=== PATIENT | female | born 1930 | race Caucasian/White ===

== ENCOUNTER 2017-03-22 10:03 | Emergency (ER) | payer MEDICARE, MEDICAID ==
[~2017-03-22] VITALS: Ht 154.9 cm; Wt 63.5 kg
[~2017-03-22 10:03] MED LIST: AMITRIPTYLINE10 MG PO; B-121000 MCG; B-121000 MCG SC; B121000 MCG/1 IM; BENICAR40 MG PO; BISACODYL5 MG PO; CIPRO250 MG PO; COLCRYS0.6 MG PO; DOXYCYCLINE100 M3 PO; ELAVIL10 MG PO; GABAPENTIN300 MG PO; GLIMEPIRIDE2 MG PO; JANUMET 1000 MG1 TA1; JANUMET 1000 MG1 TA1 PO; METFORMIN; METFORMIN1000 MG PO; MOM30 M1; NEUTRA PHOS K PO; NORVASC5 MG PO; NOVOLOG100 U/ML; PRAVACHOL40 MG PO; PRED FORTE 5 ML5 ML OP; PREDNISOLONE AC10 M1; PROTONIX40 MG PO; SIMVASTATIN40 MG PO; TYLENOL325 M1; VASOTEC2.5 MG PO; VICODIN 5/500 505 MG PO; [UNRECOGNIZED DRUG - OTHER]
[2017-03-22] MEDS ORDERED: BRILINTA90 M1 PO (10:08)
[2017-03-22] MEDS ORDERED: METOPROLOL25 MG PO (10:09)
[2017-03-22] MEDS ORDERED: IMDUR SA30 MG PO (10:10)
[2017-03-22] MEDS ORDERED: LISINOPRIL5 MG PO (10:10)
[2017-03-22] MEDS ORDERED: COLESTIPOL HYDRO1 GM PO (10:11)
== END 2017-03-22 10:49 | disposition home or self-care (01) ==
LOC: ED 10:03
DX: S51.812A Laceration without foreign body of left forearm, initial encounter (principal); R03.0 Elevated blood-pressure reading, without diagnosis of hypertension; Z79.899 Other long term (current) drug therapy; X58.XXXA Exposure to other specified factors, initial encounter; Y93.89 Activity, other specified; Y92.9 Unspecified place or not applicable; Y99.9 Unspecified external cause status

== ENCOUNTER → 2017-07-03 | Outpatient (CLI) | payer MEDICARE, MEDICAID ==
[~2017-07-03] MED LIST changes: +BRILINTA90 M1 PO; +COLESTIPOL HYDRO1 GM PO; +IMDUR SA30 MG PO; +LISINOPRIL5 MG PO; +METOPROLOL25 MG PO
[2017-07-03 14:48] LABS: BASO % 0.5 % (0.0-1.0); EOS # 0.2 10*3/uL (0.0-0.4); EOS % 2.9 % (1.0-4.0); HEMATOCRIT 30.7 % (37.0-47.0); HEMOGLOBIN 9.7 g/dl (12.0-16.0); LYMPH # 2.8 10*3/uL (1.3-4.4); LYMPH % 35.3 % (27.0-41.0); MEAN CELL VOLUME 101.3 fl (81.0-99.0); MEAN CORPUSCULAR HGB CONC 31.6 g/dl (33.0-37.0); MEAN PLATELET VOLUME 10.4 fl (9.6-12.3); MONO # 0.7 10*3/uL (0.1-1.0); MONO % 8.3 % (3.0-9.0); NEUT # 4.2 10*3/uL (2.3-7.9); NEUT % 52.7 % (47.0-73.0); PLATELET COUNT AUTOMATED 208 10*3/uL (130-400); RED BLOOD COUNT 3.03 10*6/uL (4.10-5.10); RED CELL DISTRI WIDTH 12.8 % (0-14.5)
[2017-07-03 19:11] LABS: ALBUMIN 3.4 gm/dl (3.1-4.5); BILIRUBIN, TOTAL 0.3 mg/dl (0.2-1.0); POTASSIUM 5.1 mmol/L (3.5-5.1); TOTAL PROTEIN 6.7 gm/dL (6.4-8.2)
[2017-07-03 19:20] LABS: THYROID STIM HORMONE (HS) 2.82 uIU/ml (0.358-4.75)
== END | disposition home or self-care (01) ==
LOC: LAB 13:49
PROVIDERS: Internal Medicine
DX: I25.84 Coronary atherosclerosis due to calcified coronary lesion (principal); E11.9 Type 2 diabetes mellitus without complications

== ENCOUNTER → 2018-02-18 | Outpatient (CLI) | payer MEDICARE, MEDICAID ==
[2018-02-18 11:36] LABS: BASO % 0.5 % (0.0-1.0); EOS # 0.2 10*3/uL (0.0-0.4); EOS % 2.6 % (1.0-4.0); HEMATOCRIT 29.8 % (37.0-47.0); HEMOGLOBIN 9.4 g/dl (12.0-16.0); LYMPH # 2.5 10*3/uL (1.3-4.4); LYMPH % 32.9 % (27.0-41.0); MEAN CELL VOLUME 102.1 fl (81.0-99.0); MEAN CORPUSCULAR HGB 32.2 pg (27.0-31.0); MEAN CORPUSCULAR HGB CONC 31.5 g/dl (33.0-37.0); MEAN PLATELET VOLUME 10.2 fl (9.6-12.3); MONO # 0.6 10*3/uL (0.1-1.0); MONO % 8.1 % (3.0-9.0); NEUT # 4.1 10*3/uL (2.3-7.9); NEUT % 55.4 % (47.0-73.0); PLATELET COUNT AUTOMATED 195 10*3/uL (130-400); RED BLOOD COUNT 2.92 10*6/uL (4.10-5.10); RED CELL DISTRI WIDTH 12.5 % (0-14.5); WHITE BLOOD COUNT 7.4 10*3/uL (4.8-10.8)
[2018-02-18 11:54] LABS: ALBUMIN 3.3 gm/dl (3.1-4.5); CREATININE 1.15 mg/dL (0.55-1.02); POTASSIUM 4.6 mmol/L (3.5-5.1); TOTAL PROTEIN 6.4 gm/dL (6.4-8.2)
[2018-02-18 12:03] LABS: THYROID STIM HORMONE (HS) 3.21 uIU/ml (0.358-4.75)
[2018-02-18 12:22] LABS: VITAMIN D, 25-HYDROXY 21.6 ng/mL (30-100)
== END | disposition home or self-care (01) ==
LOC: LAB 10:45
PROVIDERS: Internal Medicine
DX: I25.84 Coronary atherosclerosis due to calcified coronary lesion (principal); E53.8 Deficiency of other specified B group vitamins; E11.9 Type 2 diabetes mellitus without complications; E55.9 Vitamin D deficiency, unspecified

== ENCOUNTER 2018-11-04 20:35 | Inpatient (IN) | payer MEDICARE ==
[~2018-11-04] VITALS: Ht 152.4 cm; Wt 69.0 kg
--- NOTE | ~2018-11-04 | EKG ---
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
--- NOTE | ~2018-11-04 | CON ---
[place], [place] REPORT OF CONSULTATION [id number] UNIT #: [id number] ROOM: 407 DOCTOR: CHEYENNE MCNAMARA MD BIRTHDATE: [birth year] DOS: 11/05/2018 HISTORY OF PRESENT ILLNESS: An 87-year-old patient who presented with chief complaint of presumptive abdominal pain, diarrhea, nausea, vomiting and undergoing investigation. Panel of blood work was done. Lactic acid was 2.1. Her INR was 0.9. CBC differential, white blood cell 14, H and H of 11 and 36, microcytic indices. Troponin normal. Comprehensive metabolic panel: BUN and creatinine 42 and 1.6, GFR 36, potassium initially 6.1, which has been corrected to 4.9, phosphorus and magnesium was reviewed. Her INR was 1.0. CBC differential, H and H of 9 and 30, macrocytic indices was noticed. CT scan of the abdomen and pelvis was done. Colitis extending from the splenic flexure to proximal sigmoid colon, sigmoid diverticulosis all was noticed. Chest x-ray reviewed, no acute pathology identified. PAST MEDICAL HISTORY: Diabetes mellitus, coronary artery disease, hyperkalemia, systemic hypertension, hyperlipidemia. PAST SURGICAL HISTORY: Carotid endarterectomy, coronary artery disease. SOCIAL HISTORY: Nonsmoker, nonalcohol consumer. FAMILY HISTORY: Noncontributory. ALLERGIES: No known medications. MEDICATIONS: List reviewed. REVIEW OF SYSTEMS: HEENT: Denies double vision, blurred vision. RESPIRATORY: Denies acute shortness of breath. CARDIOVASCULAR: Denies acute chest pain. DIGESTIVE SYSTEM: Nausea, vomiting, diarrhea, abdominal pain. PHYSICAL EXAMINATION: VITAL SIGNS: To be stable. HEENT: Head normocephalic, nontraumatic. Mouth and buccal mucosa benign. NECK: Supple, no thyromegaly, no cervical lymphadenopathy. CHEST: Symmetric anatomy, equal expansion. No wheeze, no rhonchi. HEART: Normal sinus rhythm, no gallop, no murmur. ABDOMEN: Soft. No hepato-organomegaly, nonspecific tender. EXTREMITIES: No cyanosis, no pedal edema. NEUROLOGIC: Alert and slow. LABORATORY DATA: Reviewed. Records reviewed. Data reviewed. IMPRESSION AND PLAN: Ruling out colitis etiology. Awaiting stool for culture and Clostridium difficile. Once the data is available, if negative, we are going to proceed with investigation of her colon as well as an EGD. Otherwise, hyperkalemia has been already addressed and electrolytes have been corrected and other adjunctive diagnoses as outlined. [place], [place] REPORT OF CONSULTATION NAME: MIGUELANGEL CHAPIN UNIT #: [id number] ROOM: 407 DOCTOR: CHEYENNE MCNAMARA MD BIRTHDATE: [birth year] Past medical, surgical history including blood in the stool, hypertension history and as dictated in paragraph of past medical, surgical listed above. Her BUN and creatinine elevation noticed and renal insufficiency, possibly contribution from prerenal element secondary to diarrhea is also on the differential. Hydration in progress. EGD colonoscopy presumptively for Saturday. CHEYENNE MCNAMARA MD CM:CONSTR:REPORT OF CONSULTATION 1212 11/05/18 1419 interface
--- NOTE | ~2018-11-04 | EKG ---
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
--- NOTE | ~2018-11-04 | O ---
[place], [place] OPERATIVE NOTE NAME: MIGUELANGEL CHAPIN UNIT #: [id number] ROOM: 407 DOCTOR: CHEYENNE MCNAMARA MD BIRTHDATE: [birth year] DOS: 11/07/2018 INDICATIONS: The patient has presented with GI bleed, abdominal pain, suspected for ischemic colitis, epigastric distress, nausea, vomiting. PROCEDURE: Today's procedure part of investigation is panendoscopy and colonoscopy. PREMEDICATION: Propofol. SCOPE: Olympus forward-viewing gastroscope Q10 video. REPORT: After putting the patient in left lateral position and application of lubricant to the scope, the scope was introduced. Thereafter, under direct visualization, advanced through the length of esophagus without difficulty. A small hiatal hernia of 2.5 cm was noticed. Gastric pouch was entered. Gastritis seen. Antral erosions appreciated. Duodenitis noticed, photographed. The patient was gradually extubated. No bleeding source was noticed. The patient tolerated the procedure well. IMPRESSION: Hiatal hernia, gastritis, gastric erosion and duodenitis, which is going to be addressed with Protonix 40 mg daily. Further discussion, we are going to proceed with colonoscopy. Thank you very much indeed. GASTROENDOSCOPIC REPORT The patient has presented with abdominal pain, blood in stool, leukocytosis. PROCEDURE: Today's procedure part of investigation is colonoscopy plus biopsies and photographic series. PREMEDICATION: Propofol. SCOPE: Olympus folding colonoscope 10L video. REPORT: After putting the patient in left lateral position and application of lubricant to the scope, the scope was introduced; thereafter, under direct visualization, advanced through the length of colon without difficulty. Evidence of ischemic colitis, occupying mid descending colon to about splenic flexure particularly was noticed, photographed biopsies done. Scope was negotiated into right colon, retained stool was noticed. The patient extubated, tolerated the procedure well. IMPRESSION: Ischemic colitis about a splenic flexure covering the entire flexure, descending colon, diverticulosis, status post biopsy of ischemic colitis. PLAN: Soft diet, continuation with Flagyl therapy only, discontinuing all [place], [place] OPERATIVE NOTE NAME: MIGUELANGEL CHAPIN UNIT #: [id number] ROOM: 407 DOCTOR: ISRRAEL [facility] B[facility]: [birth year] antibiotics and Protonix 40 mg p.o. daily and clinical reassessment. Thank you very much indeed. CHEYENNE MCNAMARA MD CM:OPRECORD:OPERATIVE NOTE [id number] CHEYENNE MCNAMARA MD 11/07/18 1644 interface
--- NOTE | ~2018-11-04 | EKG ---
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
[2018-11-04 20:40] VITALS: BP 81/40
[2018-11-04 20:47] VITALS: BP 104/48
[2018-11-04 21:24] LABS: ACT PARTIAL THROMBO TIME 18.8 SECONDS (20.8-31.5); INTERNATIONAL NORM RATIO 0.9 (2.0-3.5)
[2018-11-04 21:28] LABS: BASO # 0.1 10*3/uL (0.0-0.1); BASO % 0.5 % (0.0-1.0); EOS # 0.2 10*3/uL (0.0-0.4); EOS % 1.2 % (1.0-4.0); HEMATOCRIT 36.7 % (37.0-47.0); HEMOGLOBIN 11.8 g/dl (12.0-16.0); LYMPH % 20.5 % (27.0-41.0); MEAN CORPUSCULAR HGB 32.2 pg (27.0-31.0); MEAN CORPUSCULAR HGB CONC 32.2 g/dl (33.0-37.0); MEAN PLATELET VOLUME 9.9 fl (9.6-12.3); MONO # 0.7 10*3/uL (0.1-1.0); MONO % 4.8 % (3.0-9.0); NEUT # 10.4 10*3/uL (2.3-7.9); PLATELET COUNT AUTOMATED 262 10*3/uL (130-400); RED BLOOD COUNT 3.67 10*6/uL (4.10-5.10); RED CELL DISTRI WIDTH 12.6 % (0-14.5); WHITE BLOOD COUNT 14.5 10*3/uL (4.8-10.8)
[2018-11-04 21:45] LABS: ALBUMIN 3.7 gm/dl (3.1-4.5); CREATININE 1.6 mg/dL (0.55-1.02); TOTAL PROTEIN 7.5 gm/dL (6.4-8.2)
[2018-11-04 21:48] LABS: POTASSIUM 6.1 mmol/L (3.5-5.1)
[2018-11-04 22:15] VITALS: BP 132/52
[2018-11-04 23:00] VITALS: BP 148/54
[2018-11-04] MEDS ORDERED: MICRONIZED COLES1 GM PO (23:44)
[2018-11-05] VITALS: BP 148/54
[2018-11-05 03:20] LABS: BUN 44 mg/dl (7-24); CHLORIDE 111 mmol/L (98-107); CREATININE 1.85 mg/dL (0.55-1.02); SODIUM 142 mmol/L (136-145); TROPONIN I < 0.015 ng/ml (<0.045)
[2018-11-05 06:58] LABS: BASO % 0.1 % (0.0-1.0); LYMPH # 1.1 10*3/uL (1.3-4.4); LYMPH % 8.1 % (27.0-41.0); MEAN CELL VOLUME 100.7 fl (81.0-99.0); MEAN CORPUSCULAR HGB CONC 31.8 g/dl (33.0-37.0); MEAN PLATELET VOLUME 10.3 fl (9.6-12.3); MONO % 6.8 % (3.0-9.0); NEUT # 11.8 10*3/uL (2.3-7.9); NEUT % 84.4 % (47.0-73.0); PLATELET COUNT AUTOMATED 213 10*3/uL (130-400); RED CELL DISTRI WIDTH 12.6 % (0-14.5); WHITE BLOOD COUNT 13.9 10*3/uL (4.8-10.8)
[2018-11-05 07:08] LABS: HEMATOCRIT 30.2 % (37.0-47.0); HEMOGLOBIN 9.6 g/dl (12.0-16.0)
[2018-11-05 07:26] LABS: ACT PARTIAL THROMBO TIME 21.8 SECONDS (20.8-31.5); POTASSIUM 4.9 mmol/L (3.5-5.1)
[2018-11-05 07:36] LABS: ALBUMIN 2.8 gm/dl (3.1-4.5); CREATININE 1.57 mg/dL (0.55-1.02); PHOSPHOROUS 3.6 mg/dL (2.5-4.9); THYROID STIM HORMONE (HS) 1.81 uIU/ml (0.358-4.75); TOTAL PROTEIN 5.8 gm/dL (6.4-8.2)
[2018-11-05 07:46] LABS: VITAMIN D, 25-HYDROXY 23.7 ng/mL (30-100)
[2018-11-05 08:00] VITALS: BP 122/58
[2018-11-05 12:00] VITALS: BP 122/58; BP 142/58
[2018-11-05 16:00] VITALS: BP 142/46
[2018-11-05 20:00] VITALS: BP 137/33
[2018-11-06] VITALS: BP 141/42
[2018-11-06 06:16] LABS: CREATININE 1.18 mg/dL (0.55-1.02); POTASSIUM 4.3 mmol/L (3.5-5.1)
[2018-11-06 07:52] LABS: BASO # 0.1 10*3/uL (0.0-0.1); BASO % 0.4 % (0.0-1.0); EOS # 0.3 10*3/uL (0.0-0.4); EOS % 2.5 % (1.0-4.0); HEMATOCRIT 27.9 % (37.0-47.0); HEMOGLOBIN 8.9 g/dl (12.0-16.0); LYMPH # 2.1 10*3/uL (1.3-4.4); LYMPH % 18.1 % (27.0-41.0); MEAN CELL VOLUME 101.1 fl (81.0-99.0); MEAN CORPUSCULAR HGB 32.2 pg (27.0-31.0); MEAN CORPUSCULAR HGB CONC 31.9 g/dl (33.0-37.0); MEAN PLATELET VOLUME 10.3 fl (9.6-12.3); MONO # 0.9 10*3/uL (0.1-1.0); MONO % 7.8 % (3.0-9.0); NEUT # 8.1 10*3/uL (2.3-7.9); NEUT % 70.9 % (47.0-73.0); PLATELET COUNT AUTOMATED 184 10*3/uL (130-400); RED BLOOD COUNT 2.76 10*6/uL (4.10-5.10); RED CELL DISTRI WIDTH 13.3 % (0-14.5); WHITE BLOOD COUNT 11.4 10*3/uL (4.8-10.8)
[2018-11-06 08:00] VITALS: BP 138/62
[2018-11-06 11:59] VITALS: BP 165/46
[2018-11-06 16:00] VITALS: BP 152/61
[2018-11-06 20:00] VITALS: BP 148/52
[2018-11-07] VITALS (8 sets, daily range): BP systolic 128–181; BP diastolic 47–68
[2018-11-07 05:56] LABS: BASO % 0.4 % (0.0-1.0); EOS # 0.4 10*3/uL (0.0-0.4); EOS % 3.9 % (1.0-4.0); HEMATOCRIT 27.4 % (37.0-47.0); HEMOGLOBIN 8.8 g/dl (12.0-16.0); LYMPH # 1.8 10*3/uL (1.3-4.4); LYMPH % 18.5 % (27.0-41.0); MEAN CELL VOLUME 100.7 fl (81.0-99.0); MEAN CORPUSCULAR HGB 32.4 pg (27.0-31.0); MEAN CORPUSCULAR HGB CONC 32.1 g/dl (33.0-37.0); MEAN PLATELET VOLUME 10.1 fl (9.6-12.3); MONO # 0.9 10*3/uL (0.1-1.0); MONO % 9.2 % (3.0-9.0); NEUT # 6.6 10*3/uL (2.3-7.9); NEUT % 67.5 % (47.0-73.0); PLATELET COUNT AUTOMATED 171 10*3/uL (130-400); RED BLOOD COUNT 2.72 10*6/uL (4.10-5.10); WHITE BLOOD COUNT 9.8 10*3/uL (4.8-10.8)
[2018-11-07 06:03] LABS: ALBUMIN 2.3 gm/dl (3.1-4.5); CREATININE 1.12 mg/dL (0.55-1.02); POTASSIUM 3.9 mmol/L (3.5-5.1); TOTAL PROTEIN 5.1 gm/dL (6.4-8.2)
[2018-11-08] VITALS: BP 149/57
[2018-11-08 06:03] LABS: BASO % 0.4 % (0.0-1.0); EOS # 0.3 10*3/uL (0.0-0.4); EOS % 3.6 % (1.0-4.0); HEMATOCRIT 26.7 % (37.0-47.0); HEMOGLOBIN 8.6 g/dl (12.0-16.0); LYMPH % 25.1 % (27.0-41.0); MEAN CELL VOLUME 99.6 fl (81.0-99.0); MEAN CORPUSCULAR HGB 32.1 pg (27.0-31.0); MEAN CORPUSCULAR HGB CONC 32.2 g/dl (33.0-37.0); MEAN PLATELET VOLUME 10.2 fl (9.6-12.3); MONO # 0.7 10*3/uL (0.1-1.0); NEUT % 61.4 % (47.0-73.0); PLATELET COUNT AUTOMATED 175 10*3/uL (130-400); RED BLOOD COUNT 2.68 10*6/uL (4.10-5.10); RED CELL DISTRI WIDTH 13.2 % (0-14.5); WHITE BLOOD COUNT 8.1 10*3/uL (4.8-10.8)
[2018-11-08 06:21] LABS: BUN 18 mg/dl (7-24); CHLORIDE 118 mmol/L (98-107); POTASSIUM 3.6 mmol/L (3.5-5.1); SODIUM 144 mmol/L (136-145)
[2018-11-08 08:00] VITALS: BP 146/84
[2018-11-08] MEDS ORDERED: METRONIDAZOLE500 M1 PO (11:06)
[2018-11-08] MEDS ORDERED: PANTOPRAZOLE SO40 MG PO (11:06)
== END 2018-11-08 13:14 | disposition home health service (06) | DRG 377 ==
LOC: ED 20:35 → EDHOLD 22:03 → 4E 22:03
PROVIDERS: Internal Medicine; Internal Medicine Gastroenterology; Student in an Organized Health Care Education/Training Program
PROC: 0DB78ZX Excision of Stomach, Pylorus, Via Natural or Artificial Opening Endoscopic, Diagnostic (ICD-10-PCS; principal; 2018-11-07)
PROC: 0DBL8ZX Excision of Transverse Colon, Via Natural or Artificial Opening Endoscopic, Diagnostic (ICD-10-PCS; principal; 2018-11-07)
DX: K57.31 Diverticulosis of large intestine without perforation or abscess with bleeding (principal); N17.0 Acute kidney failure with tubular necrosis; E87.2 Acidosis; E87.1 Hypo-osmolality and hyponatremia; K55.9 Vascular disorder of intestine, unspecified; K29.71 Gastritis, unspecified, with bleeding; K25.4 Chronic or unspecified gastric ulcer with hemorrhage; K29.81 Duodenitis with bleeding; K44.9 Diaphragmatic hernia without obstruction or gangrene; K64.9 Unspecified hemorrhoids; D72.829 Elevated white blood cell count, unspecified; E87.5 Hyperkalemia; K52.9 Noninfective gastroenteritis and colitis, unspecified; I95.9 Hypotension, unspecified; E86.0 Dehydration; R00.1 Bradycardia, unspecified; R26.2 Difficulty in walking, not elsewhere classified; E87.8 Other disorders of electrolyte and fluid balance, not elsewhere classified; R74.8 Abnormal levels of other serum enzymes; I25.10 Atherosclerotic heart disease of native coronary artery without angina pectoris; Z66 Do not resuscitate; Z51.5 Encounter for palliative care; E11.65 Type 2 diabetes mellitus with hyperglycemia; I12.9 Hypertensive chronic kidney disease with stage 1 through stage 4 chronic kidney disease, or unspecified chronic kidney disease; E11.22 Type 2 diabetes mellitus with diabetic chronic kidney disease; N18.3 Chronic kidney disease, stage 3 (moderate); E78.5 Hyperlipidemia, unspecified; E66.3 Overweight; I25.2 Old myocardial infarction; Z90.710 Acquired absence of both cervix and uterus; Z95.5 Presence of coronary angioplasty implant and graft; Z80.9 Family history of malignant neoplasm, unspecified; Z79.899 Other long term (current) drug therapy